=== PATIENT | female | born 1980 | race Caucasian/White ===

== ENCOUNTER 2016-05-01 14:23 | Emergency (ER) | payer SELFPAY ==
[~2016-05-01] VITALS: Ht 165.1 cm; Wt 65.5 kg
[2016-05-01] MEDS ORDERED: IBUPROFEN 600 MG TABLET PO ONE (15:30)
[2016-05-01] MEDS ORDERED: HYDROCODONE/ACETAMINOPHEN 5-325 MG TABLET PO ONE (15:30)
[2016-05-01] MEDS ORDERED: AMOXICILLIN TRIHYDRATE 250 MG CAPSULE PO ONE (15:30)
[2016-05-01 16:15] VITALS: BP 127/77
== END 2016-05-01 16:16 | disposition home or self-care (01) ==
LOC: EMS 14:25 → EDBD 14:25 → EMS 16:16
DX: K04.7 Periapical abscess without sinus (principal)
CPT/HCPCS: 99284